=== PATIENT | male | born 1990 | race Caucasian/White ===

== ENCOUNTER 2020-08-22 04:42 | Emergency (ER) | payer MEDICAID ==
[~2020-08-22] VITALS: Ht 172.7 cm; Wt 81.6 kg
[2020-08-22 04:48] VITALS: Ht 172.7 cm; Wt 81.6 kg
[2020-08-22 05:33] VITALS: BP 124/68
== END 2020-08-22 05:33 | disposition left against medical advice (07) ==
LOC: ED 04:42
DX: R10.13 Epigastric pain (principal); R10.10 Upper abdominal pain, unspecified
CPT/HCPCS: J2060

== ENCOUNTER 2020-08-23 07:53 | Emergency (ER) | payer MEDICAID ==
[~2020-08-23] VITALS: Ht 175.3 cm; Wt 86.2 kg
[2020-08-23 07:54] VITALS: Ht 175.3 cm; Wt 86.2 kg
[2020-08-23 08:31] LABS: BASOPHIL % 0.5 % (0-2); RED CELL DISTRIBUTION WIDTH 14.4 % (11.5-14.5)
[2020-08-23 08:37] LABS: PLATELET COUNT 67 x10^3mcL (130-400)
[2020-08-23 08:52] LABS: CALCIUM 9.8 mg/dL (8.5-10.1); CARBON DIOXIDE 26.9 mmol/L (21-32); CHLORIDE SERUM 102 mmol/L (98-107); CREATININE SERUM 0.8 mg/dL (0.7-1.3); GFR1 > 60 mL/min; GLUCOSE SERUM 102 mg/dL (74-106); POTASSIUM SERUM 4.2 mmol/L (3.5-5.1); SODIUM SERUM 138 mmol/L (136-145)
[2020-08-23 08:56] LABS: ALBUMIN 4.1 g/dL (3.4-5.0); ALKALINE PHOSPHATASE 82 U/L (46-116); ALT/SGPT 122 U/L (16-63); AST/SGOT 69 U/L (15-37); BILIRUBIN TOTAL 1.21 mg/dL (0.20-1.00); LIPASE 80 IU/L (73-393)
[2020-08-23 09:01] LABS: TOTAL PROTEIN, SERUM 8.3 g/dL (6.4-8.2)
[2020-08-23 12:34] VITALS: BP 115/78
== END 2020-08-23 12:34 | disposition home or self-care (01) ==
LOC: ED 07:53
PROVIDERS: Emergency Medicine
DX: K80.20 Calculus of gallbladder without cholecystitis without obstruction (principal)
CPT/HCPCS: C9113; J1885; J3010; J7030

== ENCOUNTER 2020-08-25 17:35 | Emergency (ER) | payer MEDICAID ==
[~2020-08-25] VITALS: Ht 172.7 cm; Wt 86.2 kg
[2020-08-25 17:40] VITALS: Ht 172.7 cm; Wt 86.2 kg
[2020-08-25 18:46] VITALS: BP 143/94
[2020-08-25 19:22] LABS: BASOPHIL % 0.8 % (0-2); PLATELET COUNT 277 x10^3mcL (130-400); RED CELL DISTRIBUTION WIDTH 14.4 % (11.5-14.5)
[2020-08-25 19:24] LABS: ALKALINE PHOSPHATASE 83 U/L (46-116); ALT/SGPT 98 U/L (16-63); AMYLASE 85 U/L (25-115); AST/SGOT 35 U/L (15-37); BILIRUBIN TOTAL 0.7 mg/dL (0.20-1.00); CALCIUM 9.3 mg/dL (8.5-10.1); CHLORIDE SERUM 104 mmol/L (98-107); CREATININE SERUM 1.2 mg/dL (0.7-1.3); GFR1 > 60 mL/min; GLUCOSE SERUM 111 mg/dL (74-106); LIPASE 94 IU/L (73-393); POTASSIUM SERUM 3.8 mmol/L (3.5-5.1); SODIUM SERUM 138 mmol/L (136-145); TOTAL PROTEIN, SERUM 7.8 g/dL (6.4-8.2)
== END 2020-08-25 23:00 | disposition left against medical advice (07) ==
LOC: ED 17:35
PROVIDERS: Emergency Medicine
DX: K80.20 Calculus of gallbladder without cholecystitis without obstruction (principal); R10.11 Right upper quadrant pain; R10.12 Left upper quadrant pain
CPT/HCPCS: J1885; J2270; Q0162

== ENCOUNTER 2020-11-08 07:53 | Emergency (ER) | payer OTHER, MEDICAID ==
[~2020-11-08] VITALS: Ht 172.7 cm; Wt 86.2 kg
[2020-11-08 07:55] VITALS: Ht 172.7 cm; Wt 86.2 kg
[2020-11-08 08:25] LABS: BASOPHIL % 0.8 % (0.2-1.5); PLATELET COUNT 312 x10^3mcL (152-348); RED CELL DISTRIBUTION WIDTH 13.8 % (12.1-16.2)
[2020-11-08 09:23] LABS: CALCIUM 8.6 mg/dL (8.5-10.1); CARBON DIOXIDE 28.8 mmol/L (21-32); CHLORIDE SERUM 108 mmol/L (98-107); CREATININE SERUM 0.9 mg/dL (0.7-1.3); GFR1 > 60 mL/min; GLUCOSE SERUM 106 mg/dL (74-106); POTASSIUM SERUM 4.2 mmol/L (3.5-5.1); SODIUM SERUM 142 mmol/L (136-145)
[2020-11-08 09:27] LABS: ALKALINE PHOSPHATASE 123 U/L (46-116); ALT/SGPT 157 U/L (16-63); AST/SGOT 79 U/L (15-37); BILIRUBIN TOTAL 0.4 mg/dL (0.20-1.00); CHOLESTEROL 126 mg/dL (<200); LIPASE 74 IU/L (73-393); MAGNESIUM 2.1 mg/dL (1.8-2.4); TOTAL PROTEIN, SERUM 7.9 g/dL (6.4-8.2)
[2020-11-08 09:55] VITALS: BP 113/91
== END 2020-11-08 09:55 | disposition left against medical advice (07) ==
LOC: ED 07:53
PROVIDERS: Emergency Medicine
DX: R10.13 Epigastric pain (principal); R11.2 Nausea with vomiting, unspecified; F10.20 Alcohol dependence, uncomplicated; Z20.828 Contact with and (suspected) exposure to other viral communicable diseases
CPT/HCPCS: 82962; 83880; G0480; J1885; J2405; J3411; J3475; J3490; J7030; U0003